=== PATIENT | male | born 1945 | race Caucasian/White ===

== ENCOUNTER → 2016-03-22 | Outpatient (CLI) | payer MEDICARE, OTHER ==
[~2016-03-22] MED LIST: ADVIL200 MG PO; GLUCOPHAGE500 MG/TAB PO; OFEV100 MG PO; TRICOR145 MG PO; ZOCOR 40MG40 MG PO
== END ==
LOC: COL.VAS 08:53
DX: I08.1 Rheumatic disorders of both mitral and tricuspid valves (principal); R94.39 Abnormal result of other cardiovascular function study; R06.09 Other forms of dyspnea; R79.89 Other specified abnormal findings of blood chemistry

== ENCOUNTER → 2016-04-09 | Outpatient (CLI) | payer MEDICARE, OTHER | LOC: COL.PUL 14:30 | DX: R05 Cough (principal) ==

== ENCOUNTER 2016-08-02 11:12 | Emergency (ER) | payer MEDICARE, OTHER ==
[~2016-08-02] VITALS: Ht 172.7 cm; Wt 98.2 kg
[~2016-08-02 11:12] MED LIST changes: -GLUCOPHAGE500 MG/TAB PO; -OFEV100 MG PO
[2016-08-02 11:15] VITALS: BP 131/84; PULSE 76; TEMP 98
[2016-08-02] MEDS ORDERED: OFEV100 MG PO (11:20)
[2016-08-02] MEDS ORDERED: GLUCOPHAGE500 MG/TAB PO (11:20)
[2016-08-02 13:14] LABS: BASO # 0.1 (0.0-0.2); BASO % 1.1 % (0.0-2.0); EOS # 0.4 (0.0-0.7); EOS % 4.3 % (0-4.0); GRAN # 6.4 (1.4-6.5); GRAN % 69.7 % (42.2-75.2); HEMATOCRIT 51.4 % (42.0-52.0); HEMOGLOBIN 17.5 g/dl (13.5-18.0); LYMPH # 1.5 (1.2-3.4); LYMPH % 15.8 % (20.0-51.0); MEAN CELL VOLUME 90 fl (80.0-100.0); MEAN CORPUSCULAR HEMOGLOBIN 31 pg (27.0-31.0); MEAN CORPUSCULAR HGB CONC 34 g/dl (33.0-37.0); MEAN PLATELET VOLUME 10.3 fl (7.4-10.4); MONO # 0.8 (0.1-0.6); MONO % 8.7 % (1.7-9.3); PLATELET COUNT 225 K/mm3 (130-400); RED BLOOD COUNT 5.72 M/mm3 (4.20-5.60); REDCELL DISTRIBUTION WIDTH-CV 12.3 % (11.5-14.5); WHITE BLOOD COUNT 9.2 K/mm3 (4.8-10.8)
[2016-08-02 13:17] LABS: ADJUSTED CALCIUM 9.1 mg/dL (8.4-10.2); ALBUMIN 4.1 gm/dL (3.5-5.0); BILIRUBIN,TOTAL 0.8 mg/dL (0.0-1.0); C-REACTIVE PROTEIN 0.7 mg/dL (0.0-0.9); CALCIUM 9.2 mg/dL (8.4-10.2); CREATININE, serum 0.83 mg/dL (0.66-1.25); POTASSIUM 4.2 mmol/L (3.4-5.0); TOTAL PROTEIN 7.1 gm/dL (6.4-8.2)
[2016-08-02 13:20] LABS: PARTIAL THROMBOPLASTIN TIME 35.9 SECONDS (26.0-37.0)
[2016-08-02 13:23] LABS: PROTHROMBIN TIME 10.7 SECONDS (9.7-12.8)
[2016-08-02 14:09] LABS: ERYTHROCYTE SEDIMENTATION RATE 1 mm/hr (0-30)
== END 2016-08-02 14:28 | disposition home or self-care (01) ==
LOC: COL.ER 11:12
PROVIDERS: Emergency Medicine
DX: H54.61 Unqualified visual loss, right eye, normal vision left eye (principal); E11.9 Type 2 diabetes mellitus without complications